=== PATIENT | male | born 1985 | race Two or more races ===

== ENCOUNTER 2017-06-22 00:10 | Emergency (ER) | payer SELFPAY ==
[~2017-06-22] VITALS: Ht 167.6 cm; Wt 60.8 kg
[2017-06-22 01:38] VITALS: BP 108/65
[2017-06-22] MEDS ORDERED: BACTRIM DS TAB1 EAC1 ORAL (03:58)
[2017-06-22] MEDS ORDERED: ACETAMINOPHEN-1 EAC1 ORAL (03:58)
[2017-06-22] MEDS ORDERED: Tylenol #3 tab (300mg/30mg) ORAL ONE (04:00)
[2017-06-22] MEDS ORDERED: Bactrim DS (160mg/800mg) tab ORAL ONE (04:00)
--- NOTE | 2017-06-22 04:03 | Emergency Room Report ---
History of Present Illness General Chief Complaint: Skin Rash/Abscess Source: Patient Present Illness HPI 31-year-old male transgender female with 2-3 days of rash to back of right leg. States she woke up one morning with pain, not sure if she was bit. Denies fever or chills, denies previous abscesses denies diabetes No other known medical problems other medical problems Allergies: Coded Allergies: No Known Allergies (Unverified , 10/23/14) Patient History Past Medical History: none Past Surgical History: none Pertinent Family History: none Social History: Denies: smoking, alcohol use, drug use Immunizations: UTD Reviewed Nursing Documentation: PMH: Agreed, PSxH: Agreed Nursing Documentation-PMH Past Medical History: No Stated History Review of Systems All Other Systems: negative except mentioned in HPI Physical Exam Vital Signs Date Time Temp Pulse Resp B/P (MAP) Pulse Ox O2 Delivery O2 Flow Rate FiO2 06/22/17 00:14 99.0 98 16 108/65 97 Room Air Sp02 EP Interpretation: reviewed, normal General Appearance: normal inspection, well appearing, no apparent distress, alert Head: atraumatic ENT: normal ENT inspection, hearing grossly normal, normal voice Neck: normal inspection, full range of motion, supple, no bony tend Respiratory: normal inspection, lungs clear, normal breath sounds, no respiratory distress, no retraction, no wheezing Cardiovascular #1: regular rate, rhythm, no edema Gastrointestinal: normal inspection, normal bowel sounds, non tender, soft, no guarding, no hernia Genitourinary: no CVA tenderness Musculoskeletal: normal inspection, back normal, normal range of motion, Peterson' s Sign negative Neurologic: normal inspection, alert, responsive, speech normal Psychiatric: normal inspection, judgement/insight normal, mood/affect normal Skin: normal inspection, normal color, other - right leg: Posterior aspect below popliteal fossa there is a 4 cm area of induration. This possible small area of fluctuation. No denzel abscess Procedures Incision and Drainage Incision and Drainage : Consent: Verbal Blade Size: 11 I & D Procedure: betadine prep, sterile drapes applied, sterile dressing applied, gauze wick placed Wound Location: lower extremity Wound's Depth, Shape: superficial Wound Explored: clean Anesthesia: Lidocaine w/ Epi Splint Applied?: No Patient Tolerated: Well Complications: None Medical Decision Making Diagnostic Impression: Primary Impression: Cellulitis and abscess of leg ER Course Right lower leg cellulitis No significant amount of pus from the incision and drainage Mostly induration from cellulitis Initial dose of Bactrim and pain medication given in ER ER course: Patient has remained stable during ED stay. Patient is to be discharged to home. Prescriptions given are bactrim, T#3 Patient is instructed to follow up with their primary care doctor within 5 days. Strict return precautions discussed with patient such as fever, chills, worsening/severe pain, nausea, vomiting, which may indicate severe illness. Patient verbalizes understanding and agrees with plan. Please note that this Emergency Department Report was dictated using [employer] operator apprentice technology software, occasionally this can lead to erroneous entry secondary to interpretation by the dictation equipment Last Vital Signs Date Time Temp Pulse Resp B/P (MAP) Pulse Ox O2 Delivery O2 Flow Rate FiO2 06/22/17 01:38 99.0 16 108/65 97 Room Air 06/22/17 00:14 98 Status: improved Disposition: HOME, SELF-CARE Condition: Improved Scripts Acetaminophen With Codeine (T#3) (TYLENOL #3 TAB*) Y Tab 1 TAB ORAL Q8H Y for leg pain for 7 Days, #10 TAB Prov: KARLA NOWAK M.D. 06/22/17 Trimethoprim/Sulfamethoxazole 160/800* (BACTRIM DS TABLET*) 1 Each Tablet 1 TAB ORAL Q12H for 7 Days, #13 TAB 0 Refills Prov: KARLA NOWAK M.D. 06/22/17 Referrals: NON PHYSICIAN (PCP) Patient Instructions: Cellulitis, [id number] KARLA NOWAK M.D. Jun 22, 2017 04:03
[2017-06-22 04:21] VITALS: BP 108/65
[2017-06-22 04:22] VITALS: BP 108/65
== END 2017-06-22 04:20 | disposition home or self-care (01) ==
LOC: EMR 01:01
DX: L02.415 Cutaneous abscess of right lower limb (principal)
CPT/HCPCS: 10060; 99284